=== PATIENT | female | born 1950 | race Caucasian/White ===

== ENCOUNTER 2022-06-06 14:11 | Observation (INO) | payer MEDICARE, OTHER ==
[~2022-06-06] VITALS: Ht 160 cm; Wt 57.0 kg
[~2022-06-06 14:11] MED LIST: AMLO2.5T2 PO; ATOR20TA65 PO; DULO30CA52 PO; GABA-529 PO; HYDR-4064 PO; IPRA3AMP24 IH; LEVO500T2 PO; MAGN500C4 PO; MELA10CA2 PO; METH4TAB PO; TRAZ-187 PO
[2022-06-06 14:55] LABS: BASOPHILS % (AUTO) 0.1 % (0.0-5.0); EOSINOPHILS % (AUTO) 0.1 % (0.0-8.0); HEMATOCRIT 43.2 % (36-48); LYMPHOCYTES % (AUTO) 5.3 % (21.0-51.0); MEAN CORPUSCULAR HEMOGLOBIN 30.5 pg (27.0-33.0); MEAN CORPUSCULAR HGB CONC 34.5 g/dL (32.0-36.0); MEAN CORPUSCULAR VOLUME 88.5 fL (79-99); MONOCYTES % (AUTO) 6.6 % (3.0-13.0); NEUTROPHILS % (AUTO) 87.6 % (40.0-77.0); PLATELET COUNT (AUTO) 182 K/uL (130-400); RED BLOOD CELL COUNT(AUTO) 4.88 MIL/uL (4.00-5.50); RED CELL DISTRIBUTION WIDTH 12.9 % (11.0-15.5); WHITE BLOOD COUNT (AUTO) 13.5 K/uL (4.8-10.8)
[2022-06-06] MEDS ORDERED: BUDESONIDE 0.5 MG/2 ML INH IH SCH (15:00)
[2022-06-06] MEDS ORDERED: KETOROLAC 15MG/ML VIAL (15MG/ML) IM ONE (15:00)
[2022-06-06] MEDS ORDERED: CYCLOBENZAPRINE HCL 10 MG TABLET PO ONE (15:00)
[2022-06-06] MEDS ORDERED: IPRATROPIUM/ALBUTEROL SULFATE 3 ML SOLUTION IH ONE (15:00)
[2022-06-06 15:30] LABS: ASPARTATE AMINOTRANSFERASE 6 U/L (10-37); CARBON DIOXIDE 20 mmol/L (21-32); CHLORIDE 99 mmol/L (101-111); GLOMERULAR FILTR. RATE CALC 3 mL/min (>60); GLUCOSE,RANDOM 126 mg/dL (70-105); POTASSIUM 3.6 mmol/L (3.5-5.1); SODIUM SERUM 136 mmol/L (136-145); TOTAL PROTEIN, SERUM 7.3 g/dL (6.0-8.3); UREA NITROGEN, BLOOD 41 mg/dL (7-18)
[2022-06-06] MEDS ORDERED: AZITHROMYCIN 250 MG TABLET PO ONE (15:30)
[2022-06-06] MEDS ORDERED: CEFTRIAXONE 1G VIAL IM ONE (15:30)
[2022-06-06 15:35] LABS: CREATININE 13.2 mg/dL (0.5-1.5)
[2022-06-06 15:48] LABS: ALANINE AMINOTRANSFERASE < 6 U/L (12-78)
[2022-06-06] MEDS ORDERED: AMLO-257 PO (15:49)
[2022-06-06] MEDS ORDERED: LISI10TA24 PO (15:49)
[2022-06-06] MEDS ORDERED: LABETALOL 20MG SYG IV PRN (17:00)
[2022-06-06] MEDS ORDERED: HYDRALAZINE 20MG/ML VIAL IV PRN (17:00)
[2022-06-06] MEDS ORDERED: LACTULOSE 20 GM/30 ML UDCUP PO PRN (17:00)
[2022-06-06] MEDS ORDERED: AZITHROMYCIN 500MG+NS 250ML IVPB SCH (17:00)
[2022-06-06] MEDS ORDERED: ACETAMINOPHEN 325 MG TAB PO PRN (17:00)
[2022-06-06] MEDS ORDERED: CLONIDINE HCL 0.1 MG TABLET PO PRN (17:00)
[2022-06-06] MEDS: IPRATROPIUM/ALBUTEROL SULFATE 3 ML SOLUTION IH SCH ×2 (18:42→22:10)
[2022-06-06] MEDS: INSULIN HUMULIN R 100 UNIT/ML 3ML SQ SCH (20:16)
[2022-06-06 20:34] LABS: APPEARANCE,URINE CLEAR (CLEAR); BILIRUBIN,URINE NEGATIVE (NEGATIVE); COLOR,URINE YELLOW (YELLOW); GLUCOSE, URINE (UA) NEGATIVE (NEGATIVE); KETONES,URINE 5 mg/dL (NEGATIVE); LEUKOCYTE ESTERASE ,URINE 75 Leu/uL (NEGATIVE); NITRATE,URINE NEGATIVE (NEGATIVE); OCCULT BLOOD,URINE NEGATIVE (NEGATIVE); PROTEIN,URINE 30 mg/dL (NEGATIVE); UROBILINOGEN,URINE 0.2 mg/dL (0.2-1.0)
[2022-06-06 20:40] LABS: BACTERIA,URINE RARE /HPF (None Seen); MUCUS,URINE RARE LPF (None Seen); SQUAMOUS EPITHELIAL CELL,UR RARE /HPF (0-2)
[2022-06-07] MEDS ORDERED: 0.9% NACL 500ML IV.SOLN 500 ML IV ONE ×2 (00:21→00:30)
[2022-06-07 00:30] VITALS: BP 145/65
[2022-06-07] MEDS ORDERED: 0.9%NACL 1000ML 1,000 ML IV SCH (00:30)
[2022-06-07] MEDS: IPRATROPIUM/ALBUTEROL SULFATE 3 ML SOLUTION IH SCH ×4 (01:19→14:35)
[2022-06-07] MEDS ORDERED: ONDANSETRON 4MG INJ ONE (03:41)
[2022-06-07] MEDS ORDERED: FAMOTIDINE 20MG TAB ONE (03:41)
[2022-06-07] MEDS ORDERED: HYDROCODONE/ACETAMINOPHEN 5/325 MG TAB ONE (03:42)
[2022-06-07] MEDS ORDERED: ONDANSETRON 4MG INJ IVP PRN (04:00)
[2022-06-07] MEDS ORDERED: HYDROCODONE/ACETAMINOPHEN 5/325 MG TAB PO PRN (04:00)
[2022-06-07 04:30] VITALS: BP 159/73
[2022-06-07] MEDS ORDERED: SOLU-MEDROL 40MG VIAL IVP SCH (06:00)
[2022-06-07] MEDS: INSULIN HUMULIN R 100 UNIT/ML 3ML SQ SCH ×3 (06:08→16:20)
[2022-06-07 06:47] LABS: BASOPHILS % (AUTO) 0.1 % (0.0-5.0); HEMATOCRIT 38.2 % (36-48); LYMPHOCYTES % (AUTO) 16.9 % (21.0-51.0); MEAN CORPUSCULAR HEMOGLOBIN 30.7 pg (27.0-33.0); MEAN CORPUSCULAR VOLUME 90.1 fL (79-99); MONOCYTES % (AUTO) 8.5 % (3.0-13.0); NEUTROPHILS % (AUTO) 74.1 % (40.0-77.0); PLATELET COUNT (AUTO) 150 K/uL (130-400); RED BLOOD CELL COUNT(AUTO) 4.24 MIL/uL (4.00-5.50); RED CELL DISTRIBUTION WIDTH 13.2 % (11.0-15.5); WHITE BLOOD COUNT (AUTO) 7.9 K/uL (4.8-10.8)
[2022-06-07 07:02] LABS: ALBUMIN 3.5 g/dL (3.5-5.0); CREATININE 0.9 mg/dL (0.5-1.5); PHOSPHORUS 3.2 mg/dL (2.5-4.9); POTASSIUM 3.8 mmol/L (3.5-5.1); THYROID STIMULATING HORMONE 1.18 uIU/mL (0.36-3.74); TOTAL PROTEIN, SERUM 7.4 g/dL (6.0-8.3)
[2022-06-07 07:24] LABS: B-TYPE NATRIURETIC PEPTIDE 176 pg/mL (0-100)
[2022-06-07 08:25] VITALS: BP 120/83
[2022-06-07] MEDS ORDERED: FAMOTIDINE 20MG TAB PO SCH (09:00)
[2022-06-07] MEDS: POLYETHYLENE GLYCOL 3350 17 GM POWD.PACK PO SCH ×2 (09:00→09:15)
[2022-06-07] MEDS ORDERED: CEFTRIAXONE 2GM VIAL IVP SCH (09:00)
[2022-06-07 11:44] VITALS: BP 119/67
[2022-06-07] MEDS ORDERED: PRED20TA3 PO (14:48)
[2022-06-07] MEDS ORDERED: AMOX-426 PO (14:49)
[2022-06-07 16:07] VITALS: BP 144/71
[2022-06-07] MEDS ORDERED: AZITHROMYCIN 500MG+NS 250ML IVPB SCH (17:00)
== END 2022-06-07 17:31 | disposition home or self-care (01) ==
LOC: EDH 14:11 → EDHIP 16:47 → 4CH 06-07 00:30
PROVIDERS: ADMIT Internal Medicine Pulmonary Disease; ATTEND Internal Medicine Pulmonary Disease
DX: U07.1 COVID-19 (principal); J12.82 Pneumonia due to coronavirus disease 2019; N17.9 Acute kidney failure, unspecified; D72.829 Elevated white blood cell count, unspecified; J44.9 Chronic obstructive pulmonary disease, unspecified; E11.65 Type 2 diabetes mellitus with hyperglycemia; I10 Essential (primary) hypertension; M41.9 Scoliosis, unspecified; E88.09 Other disorders of plasma-protein metabolism, not elsewhere classified; F17.200 Nicotine dependence, unspecified, uncomplicated; Z79.84 Long term (current) use of oral hypoglycemic drugs; Z79.899 Other long term (current) drug therapy; Z98.890 Other specified postprocedural states
CPT/HCPCS: 96372; 99285; 84484; 80053 ×2; 85025 ×2; 87088; 87804 ×2; 82948 ×4; 81001; 36415 ×2; 87635; 71045; 76770; 93005; 94640 ×8; 94664; 96374; 96361; 96375; 84443; 83615; 83735; 84100; 83880; 82728; 85378; 83605; 94760 ×2; 84145; G0378 ×23; C9803; J0696 ×2; J0456; J1885; J7040; J2405; J2920

== ENCOUNTER → 2023-12-23 | Outpatient (CLI) | payer MEDICARE ==
[~2023-12-23] MED LIST changes: +AMLO-257 PO; -AMLO2.5T2 PO; +AMOX-426 PO; -HYDR-4064 PO; -IPRA3AMP24 IH; -LEVO500T2 PO; +LISI10TA24 PO; -MAGN500C4 PO; -MELA10CA2 PO; -METH4TAB PO; +PRED20TA3 PO
== END | disposition home or self-care (01) ==
LOC: SHCH 09:07
PROVIDERS: ATTEND Internal Medicine Cardiovascular Disease
DX: I44.7 Left bundle-branch block, unspecified (principal); R94.31 Abnormal electrocardiogram [ECG] [EKG]; R55 Syncope and collapse
CPT/HCPCS: 93880; 93978

== ENCOUNTER → 2023-12-30 | Outpatient (CLI) | payer MEDICARE | END | disposition home or self-care (01) | LOC: SHCH 12:39 | PROVIDERS: ATTEND Internal Medicine Cardiovascular Disease | DX: R94.31 Abnormal electrocardiogram [ECG] [EKG] (principal) | CPT/HCPCS: 93306 ==

== ENCOUNTER → 2023-12-31 | Outpatient (CLI) | payer MEDICARE ==
[2023-12-31] MEDS: REGADENOSON 0.4 MG/5 ML PF SYG IVP ONE (14:43)
== END | disposition home or self-care (01) ==
LOC: SHCH 08:06
PROVIDERS: ATTEND Internal Medicine Cardiovascular Disease
DX: I44.7 Left bundle-branch block, unspecified (principal); R94.31 Abnormal electrocardiogram [ECG] [EKG]
CPT/HCPCS: 78452; 96374; 93017; J2785; A9500 ×2